=== PATIENT | male | born 1965 | race Caucasian/White ===

== ENCOUNTER 2021-01-26 07:15 | Day surgery (SDC) | payer OTHER ==
--- NOTE | 2021-01-14 09:54 | NUR ---
DOS: 01-26-21 STAIRS: HAS ABOUT 10 STEPS INTO THE HOME AND PLANS ON USING A CANE TO WALK WITH. PROVIED HIM WITH A HANDOUT FOR [facility]. [facility] IF HE WOULD NEED A WALKER. HE WILL BRING THE CANE ON THE DAY OF SURGERY, TOILETS: ARE TALL SHOWER: STEP IN SHOWER WITH A BENCH TO SIT IF NEEDED FOLLOW-UP AND PHYSICAL THERAPY: WILL BE HOME WITH HIM AND WILL GET HIM TO HIS FOLLOW UP APPOINTMENTS AND PHYSICAL THERAPY NEEDED.
[~2021-01-26] VITALS: Ht 190.5 cm; Wt 109.1 kg
[~2021-01-26 07:15] MED LIST: CLARITIN10 M2 PO; FISH OIL 1,0001 EACH PO; MULTIVITAMINS1 EAC8 PO; TURMERIC500 M2 PO; VITAMIN C500 M1 PO; ZINC50 M2 PO
[2021-01-26] MEDS ORDERED: OXYCODONE HCL5 MG PO (11:15)
[2021-01-26] MEDS ORDERED: GABAPENTIN600 MG PO (11:15)
[2021-01-26] MEDS ORDERED: TAMSULOSIN HCL0.4 MG PO (11:15)
[2021-01-26] MEDS ORDERED: XARELTO10 MG PO (11:15)
[2021-01-26] MEDS ORDERED: SENNA LAX8.6 MG PO (11:16)
[2021-01-26] MEDS ORDERED: ACETAMINOPHEN500 MG PO (11:16)
--- NOTE | 2021-01-26 11:36 | NUR ---
01/26/21 1136 Zeynep Osuna 1117 - PT ARRIVED FROM OR WITH [facility] DRESSING IN PLACE. PT REPORTS 7/10 PAIN, PT ABLE TO LIFT RIGHT LEG OFF BED WITHOUT DIFFICULTY. PT IS AWAKE AND ALERT. 1126 - LEELA CHEMICAL ANALYST NOTIFIED OF PT PAIN LEVEL. AT BEDSIDE FOR BLOCK. PT REMAINS AWAKE AND ALERT.
--- NOTE | 2021-01-26 12:15 | NUR ---
PATIENT BACK TO ROOM FROM PACU. RECEIVED REPORT FROM ANDRES COLLADO AND ANKITA RN. PATIENT IS AWAKE. VSS. RATES PAIN 5/10. DENIES PAIN. DRESSING IS CLEAN, DRY, AND INTACT. CRYO CUFF IN PLACE. ON-Q PUMP SET A 6. PROVIDED PATIENT WITH COFFEE, WATER, AND CRACKERS. AT BEDSIDE. CALL LIGHT WITHIN REACH.
--- NOTE | 2021-01-26 13:20 | NUR ---
PATIENT IS AWAKE AND LAYING IN BED. VSS. RATES PAIN 2/10. DENIES NAUSEA. DRESSING IS CLEAN, DRY, AND INTACT. CRYO CUFF IN PLACE. ON-Q PUMP SET AT 6. LUNCH ORDERED FOR PATIENT. PATINET DRINKING WATER. AT BEDSIDE. CALL LIGHT WITHIN REACH.
--- NOTE | 2021-01-26 14:15 | NUR ---
PATIENT BACK TO ROOM FROM PHYSICAL THERAPY.
--- NOTE | 2021-01-26 14:25 | NUR ---
PATIENT IS RESTING IN BED. RATES PAIN 1/10. DENIES NAUSEA. DRESSING IS CLEAN, DRY, AND INTACT. CRYO CUFF IN PLACE. ON-Q PUMP SET AT 6. PATIENT IS READY TO GO HOME. AT BEDSIDE. CALL LIGHT WITHIN REACH.
--- NOTE | 2021-01-26 15:15 | NUR ---
WENT OVER DISCHARGE INSTRUCTIONS WITH PATIENT AND HIS . PATIENT VERBALIZED UNDERSTANDING AND ALL QUESTIONS ANSWERED. WENT OVER USE OF CRYO CUFF. PATIENT GETTING DRESSED AND VOIDED 450ML WITH BEDSIDE URINAL. 1520-PHONE CALL TO DR. CESPEDES. REGARDING ON-Q PUMP SETTINGS. ON-Q PUMP TO STAY AT 6. PATIENT KNOWS TO FOLLOW UP IN OFFICE TUESDAY IF NEEDED. 1525-PATIENT AMBULATES WITH THE USE OF WALKER TO WHEELCHAIR. TOLERATES WELL. PAIN STILL WELL CONTROLLED. PROVIDED RIDE TO FRONT OF HOSPITAL WHERE WAS WAITING WITH THE TRUCK.
--- NOTE | 2021-01-28 08:59 | OR ---
[facility] [address] [place], [place] [address] Signed DATE OF OPERATION: 01/26/2021 SURGEON: Jorge Olivas MD PREOPERATIVE DIAGNOSIS: Degenerative joint disease, right knee. POSTOPERATIVE DIAGNOSIS: Degenerative joint disease, right knee. PROCEDURE: Total knee arthroplasty with Josue. ROUND UP RING HAND: Jagruti Chase PA-C. Jagruti was present and critical for all portions of procedure. ANESTHESIA: Spinal. BLOOD LOSS: 200 mL. TOURNIQUET TIME: Zero. IMPLANT: Kayenta Triathlon size 8, 9 mm polyethylene and 40 mm patella. BRIEF HISTORY: Salty is a 55-year-old gentleman with pain in his right knee. He had undergone nonoperative treatment without significant relief. Risks and benefits of the operative treatment discussed with him. He elected to proceed. DESCRIPTION OF PROCEDURE: Once consent was obtained, he was taken to the operating room. After adequate anesthesia, he was placed on the operating table and a hip bump was placed. The leg was then prepped and draped in a standard sterile fashion. The knee was approached through standard anterior incision, carried through skin and subcutaneous tissue and a mid vastus approach was undertaken. The MCL was elevated with a sleeve around the Electronically Signed By: JORGE OLIVAS MD 01/28/21 0859 PATIENT NAME: SALTY RECIO OPERATIVE REPORT DATE OF : 63 REPORT #: [id number] PHYSICIAN: JORGE OLIVAS MD PCP: KIRTI SAL PAC REPORT IS CONFIDENTIAL AND NOT TO BE RELEASED WITHOUT AUTHORIZATION [facility] [address], [place] [address] Signed posteromedial corner. The infrapatellar fat pad was quite fibrotic and was excised. 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 The anterior horns of menisci were transected. The ACL was transected. The knee was flexed and the [employer] computer ray was placed in the medial femoral condyle and the proximal tibia. The leg was then registered with computer as was the fine anatomic points of the knee. The ligamentous laxity was then checked and slight adjustments were made by anterior rising the femur. The robot was then brought in, the straight cuts were made, followed by the angled cuts. The bony excrescences were removed. The remaining osteophytes were removed. The posterior osteophytes removed off the femur. There were no posterior release performed. The trials were then positioned and the knee was taken through range of motion, was stable throughout. It looked good on the computer. The patella was cut sized and drilled for a 40 patella. The distal femoral drill holes were made. His bone was in good shape, so we elected to go with a non-cemented prosthesis. The tibia was finished using the cruciate punch, followed by the four drill holes. The implants were selected and opened. The tibia was impacted into position until it was flushed. The polyethylene was snapped into position, the femur was impacted. The knee was extended and nicely loaded. We clamped the patella into position. The knee was then taken through range of motion. The patella tracked well. The wound was copiously irrigated throughout the procedure. A total of 3 L of normal saline was used. There was an Irrisept soak in the middle. The On-Q pain pump was percutaneously placed into the adductor canal from the suprapatellar pouch. The arthrotomy was closed using #2 StrataFix, subcutaneous tissue with #0 StrataFix, and skin with 3-0 StrataFix. Steri-Strips were applied. The wound was dressed with Acticoat 7 dressing, ABD, and Dimitri wrap. He was awakened and taken to the recovery room in satisfactory condition. All sponge, needle, and instrument counts were correct. Jorge Olivas MD BA/MODL /[id number] Copies: ~ Electronically Signed By: JORGE OLIVAS MD 01/28/21 0859 PATIENT NAME: SALTY RECIO OPERATIVE REPORT DATE OF : 63 REPORT #: [id number] PHYSICIAN: JORGE OLIVAS MD PCP: KIRTI SAL PAC REPORT IS CONFIDENTIAL AND NOT TO BE RELEASED WITHOUT AUTHORIZATION
== END 2021-01-26 15:28 | disposition home or self-care (01) ==
LOC: DS 07:15
PROVIDERS: ATTEND Specialist
PROC: 0SRC0JZ Replacement of Right Knee Joint with Synthetic Substitute, Open Approach (ICD-10-PCS; principal; 2021-01-26 09:15)
DX: M17.11 Unilateral primary osteoarthritis, right knee (principal)
CPT/HCPCS: 01400; 64447; 76942; 97110; 97161; C1713; C1776; J0690; J1100; J2001; J2250; J2704; J2795; J7040; J7121